=== PATIENT | female | born 1955 | race Caucasian/White ===

== ENCOUNTER → 2020-07-23 09:48 | Outpatient (BNVA) | payer OTHER, SELFPAY | PROVIDERS: PCP Internal Medicine; Referring Provider Internal Medicine; Visit Provider Urology | DX: Z13.89 Encounter for screening for other disorder (principal) ==

== ENCOUNTER 2020-12-28 09:45 | Outpatient (REF) | payer OTHER, SELFPAY ==
--- NOTE | ~2020-12-28 | US_ITS ---
EXAMINATION: US RETROPERITONEAL LIMITED (RENAL ONLY) CLINICAL INFORMATION: Calculus of kidney. COMPARISON: Renal ultrasound 12/19/2019. CT abdomen and pelvis 11/02/2019. TECHNIQUE: Real-time imaging of the kidneys. FINDINGS: RIGHT KIDNEY: 9.5 x 4.5 x 4.0 cm (SAG x AP x TRV). The kidney is normal in size, contour, and echogenicity. Renal cortical thickness is normal. No hydronephrosis. There are 3 anechoic cysts. Two lower pole cysts measure 1.1 x 1.0 x 1.0 cm and 1.0 x 0.8 x 0.9 cm. A midpole cyst measures 0.6 x 0.4 x 0.5 cm. There are echogenic stones. A lower pole stone measures 1.3 cm and a midpole stone measures 0.5 cm. There is no caliectasis. LEFT KIDNEY: 10.4 x 4.1 x 4.1 cm (SAG x AP x TRV). The kidney is normal in size, contour, and echogenicity. Renal cortical thickness is normal. No hydronephrosis. There is an anechoic cyst in the upper pole measuring 0.7 x 0.5 x 0.9 cm. There are 2 echogenic stones midpole 0.8 cm and lower pole 0.9 cm. There is no caliectasis. US/US renal BI IMPRESSION: Bilateral renal cysts. The right renal cysts are stable. Upper pole left renal cyst is new. There are bilateral nonobstructive echogenic renal calculi. There is no caliectasis or hydronephrosis.
== END 2020-12-28 09:46 | disposition home or self-care (01) ==
LOC: HO.US 09:45
PROVIDERS: PCP Internal Medicine; Visit Provider Urology
DX: N20.0 Calculus of kidney (principal)
CPT/HCPCS: 76775

== ENCOUNTER 2021-12-14 12:49 | Outpatient (REF) | payer MEDICARE, SELFPAY ==
--- NOTE | ~2021-12-14 | US_ITS ---
EXAMINATION: US RETROPERITONEAL LIMITED (RENAL ONLY) CLINICAL INFORMATION: Calculus of kidney. COMPARISON: Ultrasound renal 12/28/2020 and 12/19/2019. TECHNIQUE: Real-time imaging of the kidneys. FINDINGS: RIGHT KIDNEY: 10.8 x 4.6 x 4.6 cm (SAG x AP x TRV). The kidney is normal in size, contour, and echogenicity. Renal cortical thickness is normal. There is a cyst in the lower pole measuring 1.2 cm. There are multiple renal stones. Largest stone or cluster of stones is in the lower pole and measures 11 x 6 x 8 mm. No renal hydronephrosis. LEFT KIDNEY: 10.4 x 4.3 x 4.3 cm (SAG x AP x TRV). The kidney is normal in size and contour. Renal cortical thickness is normal. There are multiple left renal stones, largest in the lower pole measuring 10 x 6 x 9 mm No focal parenchymal lesions. No hydronephrosis. US/US renal BI IMPRESSION: Bilateral renal stones.
== END 2021-12-14 12:50 | disposition home or self-care (01) ==
LOC: HO.HMGCX 12:49
PROVIDERS: Visit Provider Internal Medicine
DX: N20.0 Calculus of kidney (principal)
CPT/HCPCS: 76775

== ENCOUNTER 2022-10-31 07:29 | Outpatient (REF) | payer MEDICARE, SELFPAY ==
[2022-10-31 10:58] LABS: MANUAL DIFF FLAG NO
[2022-10-31 11:04] LABS: Basophils Percent Auto 0.7 % (0-2); Eosinophils Absolute Auto 0.1 X10*3/uL (0.0-0.4); Eosinophils Percent Auto 1.7 % (0-4); Hematocrit 41.6 % (37.0-47.0); Imm Gran Abs Auto 0.04 X10*3/uL (0.00-0.03); Lymphocytes Absolute Auto 1.3 X10*3/uL (1.2-4.9); Lymphocytes Percent Auto 30.8 % (20-40); Mean Corpuscular HGB Conc 33.7 g/dl (31.0-35.0); Mean Corpuscular Hemoglobin 32.3 pg (27.0-33.0); Mean Corpuscular Volume 95.9 fL (80.0-98.0); Mean Platelet Volume 10.4 fL (9.4-12.3); Monocytes Absolute Auto 0.6 X10*3/uL (0.1-1.2); Neutrophils Absolute Auto 2.1 x10*3/uL (2.0-8.3); Neutrophils Percent Auto 50.8 % (45-73); Platelet Count 180 X10*3/uL (160-400); Red Blood Count 4.34 X10*6/uL (4.20-5.50); Red Cell Distribution Width 12.5 % (11.0-16.0); White Blood Count 4.2 X10*3/uL (4.8-10.8)
[2022-10-31 11:34] LABS: Alanine Aminotransferase 16 U/L (0-31); Anion Gap 14 (12-20); Aspartate Amino Transferase 22 U/L (5-31); Blood Urea Nitrogen 14 mg/dL (9-16); Calcium 9.4 mg/dL (8.4-10.2); Carbon Dioxide 19 mmol/L (22-29); Chloride 114 mmol/L (96-108); Cholesterol 174 mg/dL; Estimated Glomerular Filt Rate 52; Glucose Fasting 100 mg/dL (60-99); HDL Cholesterol 41 mg/dL; LDL Cholesterol Calculated 113 mg/dl; Potassium 3.6 mmol/L (3.3-5.1); Sodium 143 mmol/L (135-145); Triglycerides 100 mg/dL
[2022-10-31 11:38] LABS: Vitamin D 25-OH Total 24.4 ng/mL (>30)
== END 2022-10-31 07:30 | disposition home or self-care (01) ==
LOC: HO.HMGCLDS 07:29
PROVIDERS: PCP Internal Medicine; Visit Provider Internal Medicine
DX: N20.0 Calculus of kidney (principal); I10 Essential (primary) hypertension; E78.5 Hyperlipidemia, unspecified
CPT/HCPCS: 36415; 80048; 80061; 82306; 84450; 84460; 85025

== ENCOUNTER 2022-11-28 11:21 | Outpatient (REF) | payer MEDICARE, SELFPAY ==
--- NOTE | ~2022-11-28 | US_ITS ---
EXAMINATION: US RETROPERITONEAL LIMITED (RENAL ONLY) CLINICAL INFORMATION: Calculus of kidney. COMPARISON: Ultrasound retroperitoneal limited (renal only) 12/14/2021 and 12/28/2020. CT abdomen and pelvis without contrast 11/02/2019. TECHNIQUE: Real-time imaging of the kidneys. FINDINGS: RIGHT KIDNEY: 9.6 x 4.8 x 4.9 cm (SAG x AP x TRV). The kidney is normal in size, contour, and echogenicity. Renal cortical thickness is normal. Multiple nonobstructing renal calculi are seen ranging in size from 3 mm to 9 mm. A benign 1.5 cm Bosniak class I cyst is present which needs no additional imaging or follow-up. LEFT KIDNEY: 9.0 x 4.1 x 5.2 cm (SAG x AP x TRV). The kidney is normal in size, contour, and echogenicity. Renal cortical thickness is normal. Multiple renal nonobstructing stones are seen ranging in size from 3 to 7 mm in size. No focal parenchymal lesions or hydronephrosis. US/US renal BI IMPRESSION: Bilateral nonobstructing renal calculi.
== END 2022-11-28 11:22 | disposition home or self-care (01) ==
LOC: HO.HMGCX 11:21
PROVIDERS: PCP Internal Medicine; Visit Provider Internal Medicine
DX: N20.0 Calculus of kidney (principal); R10.9 Unspecified abdominal pain
CPT/HCPCS: 76775

== ENCOUNTER 2023-05-24 09:19 | Outpatient (REF) | payer MEDICARE, SELFPAY ==
[2023-05-24 12:30] LABS: Alanine Aminotransferase 15 U/L (0-31); Anion Gap 10 (12-20); Aspartate Amino Transferase 22 U/L (5-31); Blood Urea Nitrogen 14 mg/dL (9-16); Carbon Dioxide 22 mmol/L (22-29); Chloride 114 mmol/L (96-108); Cholesterol 174 mg/dL (<200); Estimated Glomerular Filt Rate 55; Glucose Fasting 91 mg/dL (60-99); HDL Cholesterol 38 mg/dL (>40); LDL Cholesterol Calculated 107 mg/dL (<100); Potassium 3.4 mmol/L (3.3-5.1); Sodium 143 mmol/L (135-145); Triglycerides 149 mg/dL (<150)
== END 2023-05-24 09:20 | disposition home or self-care (01) ==
LOC: HO.HMGCLDS 09:19
PROVIDERS: PCP Internal Medicine; Visit Provider Internal Medicine
DX: E78.5 Hyperlipidemia, unspecified (principal); I10 Essential (primary) hypertension; E55.9 Vitamin D deficiency, unspecified; M85.88 Other specified disorders of bone density and structure, other site; Z78.0 Asymptomatic menopausal state
CPT/HCPCS: 36415; 80048; 80061; 82306; 84450; 84460

== ENCOUNTER 2024-01-18 09:06 | Outpatient (AMB) | payer MEDICARE, SELFPAY ==
[2024-01-18 09:27] VITALS: BP 118/76; PULSE 81; O2SAT 97; BMI 25.2
--- NOTE | 2024-01-18 09:27 | A.OFFVIS_ITS ---
Intake Vital Signs 01/18/24 09:27 Height 5 ft 2 in Weight 138 lb BMI 25.2 BP 118/76 Blood Pressure Location Lt brachial Position Sitting Pulse 81 Pulse Source Pulse Oximeter Pulse Oximetry (%) 97 Oxygen Delivery Method Room Air Intake Visit Reasons: SWV Allergies Iodinated Contrast Media [IV CONTRAST] Allergy (Intermediate, Verified 01/18/24 10:12) itching and hives Medication List - Last Reconciled 01/18/24 by Radha Perez MD amlodipine 10 mg PO DAILY cholecalciferol (vitamin D3) 25 mcg PO DAILY multivitamin 1 tab PO DAILY rosuvastatin 5 mg PO DAILY Do you need a note to return to daycare/school/sports/work: No HPI SWV HPI Details SWV ? 68 year old lady with hyperlipidemia, hypertension, undifferentiated connective tissue disease, and osteopenia lumbar spine, presents for her subsequent Annual Wellness Visit.? She had a normal fasting lipid panel done 05/24/2023 and fasting glucose was also done at the same time which showed normal findings. She is up-to-date with her screening colonoscopy done by Dr. Demarco 12/18/2023 showing only presence of internal hemorrhoids, to be repeated again in 10 years. She is due for her screening mammogram and bone density scan, last done 01/05/2022 which showed benign findings in the latter showed presence of beginning osteopenia in her lumbar spine with a T-score of -1.3. No history of fractures. She has had 3 COVID vaccines does not want to get the booster, declines flu vaccine pneumonia vaccine and tetanus shot. ? Medical / Social History Reviewed? Past Medical History ?Yes . ? [place] [facility] of Care / Care Team list updated ?Yes . ? Surgical/Hospitalization History ?Yes . ? Current Medications (including OTC and supplements) ?Yes . ? Family History ?Yes . ? Tobacco Control form ?Yes . ? AUDIT-C (Alcohol use) form ?Yes . ? Illicit drug use in Social History ?Yes . ? Current diagnosis of depression? ?No ? Appropriate PHQ2/PHQ9 completed ?Yes . ? Data entered by ?[employer] and reviewed by provider ? Fall Risk ? Fall History? Have you had any falls with injury in the past year? ?No . ? Have you had two or more falls in the past year? ?No . ? Fall Risk Assessment: ?No falls in the past year . ? HRA filled out by the patient, reviewed by Provider and scanned. ?SWV ? Balance? Romberg ?Yes . ? Tandem walk ?Yes . ? Walk and Turn ?Yes . ? Rise from sit to stand ?Yes . ?Vision? Corrective lens none ? Vision screen ? Up-to-date, has an appointment with her eye doctor at [facility] 03/21/2024 her routine eye exam ?Hearing? Whisper test ?pass . ?Written Plan?Completed. See Patient Documents.? [facility] Medical History (Updated 01/18/24 @ 10:16 by Radha Perez MD) Osteopenia of lumbar spine Vitamin D deficiency Bilateral nephrolithiasis Degenerative disc disease, cervical Reflux esophagitis Raynaud's phenomenon without gangrene Undifferentiated connective tissue disease Dyslipidemia Essential hypertension Surgical History No pertinent past surgical history Family History Father CVD (cardiovascular disease) History of heart attack Mother Colon cancer Diabetes mellitus Brother Substance use disorder Brother Substance use disorder Brother Substance use disorder Son No problems noted. Daughter No problems noted. Daughter No problems noted. Sister No problems noted. Sister No problems noted. Sister No problems noted. Sister No problems noted. Sister No problems noted. Social History Alcohol intake: never Female Reproductive History Menstrual Other: Goes to [facility] for her screening mammogram and bone density scan, does not want to have test done this year would like to wait until next year to have repeat test done Questionnaire Medicare Wellness Checkup [age] What gender do you identify with?: female During the past 4 weeks, how much have you been bothered by emotional problems such as feeling anxious, depressed, irritable, sad or downhearted, and blue?: not at all During the past 4 weeks, has your physical & emotional health limited your social activities with family, friends, neighbors, or groups?: not at all During the past 4 weeks, how much bodily pain have you generally had?: mild pain During the past 4 weeks, was someone available to help you if you needed & wanted help?: yes, as much as I wanted During the past 4 weeks, what was the hardest physical activity you could do for at least 2 minutes?: heavy Can you get to places out of walking distance without help? (For eg., can you travel alone on buses, taxis or drive your car?): Yes Can you go shopping for groceries or clothes without someone's help?: Yes Can you prepare your own meals?: Yes Can you do your housework without help?: Yes Because of any health problems, do you need the help of another person with your personal care needs such as eating, bathing, dressing or getting around the house?: No Can you handle your own money without help?: Yes During the past 4 weeks, how would you rate your health in general?: good During the past 4 weeks how have things been going for you?: pretty well Are you having difficulties driving your car?: no Do you always fasten your seat belt when you are in a car?: yes, usually During past 4 weeks, have you been bothered by the following: never: Falling or dizzy when standing up, Sexual problems?, Trouble eating well?, Teeth or denture problems? and Problems using the telephone? and seldom: Tiredness or fatigue? Have you fallen 2 or more times in the past year?: No Are you afraid of falling?: No Are you a smoker?: no During the past 4 weeks, how many drinks of wine, beer, or other alcoholic beverages did you have?: no alcohol at all Do you exercise for about 20 minutes 3 or more times a week?: yes, most of the time Have you been given information to help with the following?: no: Hazards in your house that might hurt you? and no: Keeping track of your medications? How often do you have trouble taking medicines the way you have been told to take them?: I always take medicine as prescribed How confident are you that you can control & manage most of your health problems?: very confident What is your race?: White Mini Mental State Exam (MMSE) Orientation What is the (year) (season) (date) (day) (month)?: year (2019), season (Spring), date (01/18/2024), day () and month (January) Where are we (state) (county) (town or city) (hospital) (floor)?: state ([place]), county ([place]), town or city ([place]) and hospital/clinic ([facility]) Score Score: 9 Activity of Daily Living Bathing - sponge bath, tub bath or shower: receives no assistance (gets in/out by self, if usual bathing means Dressing - getting clothes from closets & drawers, including inner/outer garments & fasteners.: gets clothes & gets completely dressed without help Toileting - going to the 'toilet room' for urine/bowel elimination & cleaning self/arranging clothes: goes to toilet room, cleans self, arranges clothes without help Transfer: moves in & out of bed and chair without help (may use support object) Feeding: feeds self without help Total Score: 0 Information obtained from: patient Using telephone: independent Traveling: independent Shopping: independent Preparing meals: independent Housework: independent Taking medicine: independent Managing money: independent PHQ-9 Over the last 2 weeks, how often have you been bothered by any of the following problems? 1. Little interest or pleasure in doing things: not at all 2. Feeling down, depressed, or hopeless: not at all 3. Trouble falling or staying asleep, or sleeping too much: not at all 4. Feeling tired or having little energy: not at all 5. Poor appetite or overeating: not at all 6. Feeling bad about yourself - or that you are a failure or have let yourself or your family down: not at all 7. Trouble concentrating on things, such as reading the newspaper or watching television: not at all 8. Moving or speaking so slowly that other people could have noticed. Or the opposite - being so fidgety or restless that you have been moving around a lot more than usual: not at all 9. Thoughts that you would be better off or of hurting yourself in some way: not at all Total score: 0 Depression Screening Interpretation: Negative Depression Screening Done: Yes 83802 - PHQ-9 Billing: Yes Source: Developed by Drs. Lasha Payne, Jennifer Elder, Lei Vela and colleagues, with an educational thor from [employer]. Physical Exam Vital Signs: Last Vital Signs Pulse 81 01/18/24 09:27 BP 118/76 01/18/24 09:27 Pulse Ox 97 01/18/24 09:27 Oxygen Delivery Method Room Air 01/18/24 09:27 BMI result Body Mass Index 25.2 Assessment & Plan Assessment & Plan (1) Encounter for subsequent annual wellness visit (AWV) in Medicare patient: Code(s): Z00.00 - Encounter for general adult medical examination without abnormal findings Plan: Medical wellness checklist discussed with patient, reviewed and updated. Patient does not want to get any further vaccines, does not want to get a screening mammogram or bone density done this year would like to defer it to next year. Up-to-date with her colon cancer screening. Healthcare proxy and MOLST form given to patient to complete, would like to discuss this 1st with her family . (2) Osteopenia of lumbar spine: Code(s): M85.88 - Other specified disorders of bone density and structure, other site Plan: Patient declined getting bone densities testing done this year, would like to wait until next year, no history of fractures, encouraged to do regular weight- bearing exercise, take adequate calcium from dietary sources and continue with vitamin-D 3 supplements (3) Dyslipidemia: Code(s): E78.5 - Hyperlipidemia, unspecified Plan: Fasting lipid panel ordered, currently on rosuvastatin (4) Essential hypertension: Code(s): I10 - Essential (primary) hypertension Plan: Basic metabolic panel ordered, blood pressure stable and controlled on amlodipine (5) Undifferentiated connective tissue disease: Code(s): M35.9 - Systemic involvement of connective tissue, unspecified Plan: Patient no longer on methotrexate, does not want to take further medication and does not want to take any immunomodulator (6) Bilateral nephrolithiasis: Code(s): N20.0 - Calculus of kidney Plan: Currently asymptomatic Orders: Orders Vitamin D 25-OH Total 01/18/24 M85.88 - Other specified disorders of bone density and structure, other site, E78.5 - Hyperlipidemia, unspecified, I10 - Essential (primary) hypertension, M35.9 - Systemic involvement of connective tissue, unspecified Aspartate Amino Transferase 01/18/24 M85.88 - Other specified disorders of bone density and structure, other site, E78.5 - Hyperlipidemia, unspecified, I10 - Essential (primary) hypertension, M35.9 - Systemic involvement of connective tissue, unspecified Lipid Panel 01/18/24 M85.88 - Other specified disorders of bone density and structure, other site, E78.5 - Hyperlipidemia, unspecified, I10 - Essential (primary) hypertension, M35.9 - Systemic involvement of connective tissue, unspecified Basic Metabolic Panel Fasting 01/18/24 M85.88 - Other specified disorders of bone density and structure, other site, E78.5 - Hyperlipidemia, unspecified, I10 - Essential (primary) hypertension, M35.9 - Systemic involvement of connective tissue, unspecified Alanine Aminotransferase 01/18/24 M85.88 - Other specified disorders of bone density and structure, other site, E78.5 - Hyperlipidemia, unspecified, I10 - Essential (primary) hypertension, M35.9 - Systemic involvement of connective tissue, unspecified Quality Reporting (2019) Depression/Bipolar (159/160/161/177) PHQ-9: Total score: 0 Coding Level of Care Code Medicare Subsequent (G0439) Diagnoses Encounter for subsequent annual wellness visit (AWV) in Medicare patient Z00.00 Osteopenia of lumbar spine M85.88 Dyslipidemia E78.5 Essential hypertension I10 Undifferentiated connective tissue disease M35.9 Bilateral nephrolithiasis N20.0 CPT Codes Advance Care Planning - Time spent: 1-15 minutes, not on file ([id number]) Advance Care Planning Advance Care Planning discussion: Exists, not on file Date of discussion: 01/18/24 Who was present: Patient Forms completed: Health Care Proxy (Given to patient to complete) and MOLST (Given to patient to complete) Time spent: 1-15 minutes, not on file Actual minutes spent: 15
== END 2024-01-18 10:14 | disposition home or self-care (01) ==
PROVIDERS: PCP Internal Medicine; Visit Provider Internal Medicine
DX: Z00.00 Encounter for general adult medical examination without abnormal findings (principal); M35.9 Systemic involvement of connective tissue, unspecified; M85.88 Other specified disorders of bone density and structure, other site; E78.5 Hyperlipidemia, unspecified; I10 Essential (primary) hypertension; N20.0 Calculus of kidney
CPT/HCPCS: 1124F; G0439

== ENCOUNTER 2024-01-18 10:15 | Outpatient (REF) | payer MEDICARE, SELFPAY ==
[2024-01-18 14:24] LABS: Alanine Aminotransferase 16 U/L (0-31); Anion Gap 15 (12-20); Aspartate Amino Transferase 19 U/L (5-31); Blood Urea Nitrogen 26 mg/dL (9-16); Calcium 9.9 mg/dL (8.4-10.2); Carbon Dioxide 18 mmol/L (22-29); Chloride 114 mmol/L (96-108); Cholesterol 179 mg/dL (<200); Estimated Glomerular Filt Rate 57; Glucose Fasting 98 mg/dL (60-99); HDL Cholesterol 45 mg/dL (>40); LDL Cholesterol Calculated 115 mg/dL (<100); Potassium 3.8 mmol/L (3.3-5.1); Sodium 143 mmol/L (135-145); Triglycerides 96 mg/dL (<150); Vitamin D 25-OH Total 53.3 ng/mL (>30)
== END 2024-01-18 10:16 | disposition home or self-care (01) ==
LOC: HO.HMGCLDS 10:15
PROVIDERS: PCP Internal Medicine; Visit Provider Internal Medicine
DX: M85.88 Other specified disorders of bone density and structure, other site (principal); E78.5 Hyperlipidemia, unspecified; I10 Essential (primary) hypertension; M35.9 Systemic involvement of connective tissue, unspecified
CPT/HCPCS: 36415; 80048; 80061; 82306; 84450; 84460

== ENCOUNTER 2025-01-01 06:02 | Outpatient (REF) | payer MEDICARE, SELFPAY ==
[2025-01-01 10:01] LABS: MANUAL DIFF FLAG NO
[2025-01-01 10:05] LABS: Basophils Percent Auto 0.7 % (0-2); Eosinophils Absolute Auto 0.1 X10*3/uL (0.0-0.4); Eosinophils Percent Auto 1.1 % (0-4); Hematocrit 40.9 % (37.0-47.0); Imm Gran Abs Auto 0.03 X10*3/uL (0.00-0.03); Imm Gran Pct Auto 0.5 % (0.0-0.4); Lymphocytes Absolute Auto 1.4 X10*3/uL (1.2-4.9); Lymphocytes Percent Auto 23.8 % (20-40); Mean Corpuscular HGB Conc 34.2 g/dl (31.0-35.0); Mean Corpuscular Hemoglobin 32.1 pg (27.0-33.0); Mean Corpuscular Volume 93.8 fL (80.0-98.0); Mean Platelet Volume 10.1 fL (9.4-12.3); Monocytes Absolute Auto 0.8 X10*3/uL (0.1-1.2); Monocytes Percent Auto 13.3 % (2-11); Neutrophils Absolute Auto 3.5 x10*3/uL (2.0-8.3); Neutrophils Percent Auto 60.6 % (45-73); Platelet Count 198 X10*3/uL (160-400); Red Blood Count 4.36 X10*6/uL (4.20-5.50); Red Cell Distribution Width 12.6 % (11.0-16.0); White Blood Count 5.7 X10*3/uL (4.8-10.8)
[2025-01-01 11:07] LABS: Alanine Aminotransferase 16 U/L (0-31); Anion Gap 13 (12-20); Aspartate Amino Transferase 24 U/L (5-31); Blood Urea Nitrogen 19 mg/dL (9-16); Calcium 9.6 mg/dL (8.4-10.2); Carbon Dioxide 20 mmol/L (22-29); Chloride 113 mmol/L (96-108); Cholesterol 188 mg/dL (<200); Estimated Glomerular Filt Rate 55; Glucose Fasting 91 mg/dL (60-99); HDL Cholesterol 45 mg/dL (>40); LDL Cholesterol Calculated 119 mg/dL (<100); Potassium 3.3 mmol/L (3.3-5.1); Sodium 143 mmol/L (135-145); Triglycerides 122 mg/dL (<150)
[2025-01-01 11:22] LABS: Vitamin D 25-OH Total 54.3 ng/mL (>30)
== END 2025-01-01 06:03 | disposition home or self-care (01) ==
LOC: HO.HMGCLDS 06:02
PROVIDERS: PCP Internal Medicine; Visit Provider Internal Medicine
DX: M85.88 Other specified disorders of bone density and structure, other site (principal); K21.00 Gastro-esophageal reflux disease with esophagitis, without bleeding; E78.5 Hyperlipidemia, unspecified; I10 Essential (primary) hypertension
CPT/HCPCS: 36415; 80048; 80061; 82306; 84450; 84460; 85025

== ENCOUNTER 2025-01-22 09:23 | Outpatient (AMB) | payer MEDICARE, SELFPAY ==
--- NOTE | 2025-01-22 09:46 | AM.OFFVISMDC ---
Intake Vital Signs 01/22/25 10:25 Height 5 ft 1 in Weight 142 lb BMI 26.8 BP 134/84 Blood Pressure Location Lt brachial Position Sitting Respiration 16 Pulse 88 Pulse Source Pulse Oximeter Temp 97.8 F Temp Source Oral Pulse Oximetry (%) 99 Oxygen Delivery Method Room Air Intake Visit Reasons: AWV Intake Note: Pt is here today for her AWV: Last mammogram 01/05/22, bone density scan 01/05/22, colonoscopy 12/18/23 Allergies Iodinated Contrast Media [IV CONTRAST] Allergy (Intermediate, Verified 01/18/24 10:12) itching and hives Medication List - Last Reconciled 01/22/25 by Radha Perez MD amlodipine 10 mg PO DAILY cholecalciferol (vitamin D3) 25 mcg PO DAILY multivitamin 1 tab PO DAILY rosuvastatin 5 mg PO DAILY HPI AWV HPI Details IPPE/AWV ? SWV 69-year-old lady here today for her subsequent annual wellness visit. She has hypertension, currently stable and controlled on amlodipine 10 mg taken once a day. Has hyperlipidemia, with late fasting labs showing lipids within normal limits 01/01/2025. She had a fasting blood sugar drawn at the same time which also came back within normal limits. She last had her mammogram done at [facility] 01/05/2022 with a benign findings, patient does not want to do further screenings. She had a bone density scan done at the same time in 2021 which showed presence of osteopenia in her lumbar spine with a T-score of -1.3, agreeable to repeating another bone density scan. No longer gets cervical cancer screenings or pelvic exams. Last colonoscopy was done by Dr. Demarco December 17/2024 which showed normal findings, repeat due again in 10 years Patient does not want to get any vaccines ? Medical / Social History Reviewed? Past Medical History ?Yes . ? [place] of Care / Care Team list updated ?Yes . ? Surgical/Hospitalization History ?Yes . ? Current Medications (including OTC and supplements) ?Yes . ? Family History ?Yes . ? Tobacco Control form ?Yes . ? AUDIT-C (Alcohol use) form ?Yes . ? Illicit drug use in Social History ?Yes . ? Current diagnosis of depression? ?No ? Appropriate PHQ2/PHQ9 completed ?Yes . ? Data entered by ?[employer] and reviewed by provider ? Fall Risk ? Fall History? Have you had any falls with injury in the past year? ?No . ? Have you had two or more falls in the past year? ?No . ? Fall Risk Assessment: ?No falls in the past year . ? HRA filled out by the patient, reviewed by Provider and scanned. ?SWV ? Balance? Romberg negative. ? Tandem walk ?Yes . ? Walk and Turn ?Yes . ? Rise from sit to stand ?Yes . ?Vision? Corrective lens no ? Vision screen ? Up-to-date, goes to [facility], last seen March 2024 ?Hearing? Whisper test ?pass . ?Written Plan?Completed. See Patient Documents.? [facility] Medical History Mammogram declined Vaccination declined by patient Osteopenia of lumbar spine Vitamin D deficiency Bilateral nephrolithiasis Degenerative disc disease, cervical Reflux esophagitis Raynaud's phenomenon without gangrene Undifferentiated connective tissue disease Dyslipidemia Essential hypertension Surgical History No pertinent past surgical history Family History Father CVD (cardiovascular disease) History of heart attack Mother Colon cancer Diabetes mellitus Brother Substance use disorder Brother Substance use disorder Brother Substance use disorder Son No problems noted. Daughter No problems noted. Daughter No problems noted. Sister No problems noted. Sister No problems noted. Sister No problems noted. Sister No problems noted. Sister No problems noted. Social History Alcohol intake: never Questionnaire Medicare Wellness Checkup [age] 65-69 What gender do you identify with?: female During the past 4 weeks, how much have you been bothered by emotional problems such as feeling anxious, depressed, irritable, sad or downhearted, and blue?: not at all During the past 4 weeks, has your physical & emotional health limited your social activities with family, friends, neighbors, or groups?: not at all During the past 4 weeks, how much bodily pain have you generally had?: mild pain During the past 4 weeks, was someone available to help you if you needed & wanted help?: yes, as much as I wanted During the past 4 weeks, what was the hardest physical activity you could do for at least 2 minutes?: very heavy Can you get to places out of walking distance without help? (For eg., can you travel alone on buses, taxis or drive your car?): Yes Can you go shopping for groceries or clothes without someone's help?: Yes Can you prepare your own meals?: Yes Can you do your housework without help?: Yes Because of any health problems, do you need the help of another person with your personal care needs such as eating, bathing, dressing or getting around the house?: No Can you handle your own money without help?: Yes During the past 4 weeks, how would you rate your health in general?: good During the past 4 weeks how have things been going for you?: pretty well Are you having difficulties driving your car?: no Do you always fasten your seat belt when you are in a car?: yes, usually During past 4 weeks, have you been bothered by the following: never: Sexual problems?, Teeth or denture problems? and Problems using the telephone?, seldom: Trouble eating well? and sometimes: Falling or dizzy when standing up and Tiredness or fatigue? Have you fallen 2 or more times in the past year?: No Are you afraid of falling?: No Are you a smoker?: no During the past 4 weeks, how many drinks of wine, beer, or other alcoholic beverages did you have?: no alcohol at all Do you exercise for about 20 minutes 3 or more times a week?: yes, most of the time Have you been given information to help with the following?: no: Hazards in your house that might hurt you? and no: Keeping track of your medications? How often do you have trouble taking medicines the way you have been told to take them?: I always take medicine as prescribed How confident are you that you can control & manage most of your health problems?: very confident What is your race?: White Mini Mental State Exam (MMSE) Orientation What is the (year) (season) (date) (day) (month)?: year (2023), season (Spring), date (01/22/2025), day (Monday) and month (January) Where are we (state) (county) (town or city) (hospital) (floor)?: state ([place]), county ([place]), town or city ([place]) and hospital/clinic ([facility]) Score Score: 9 Activity of Daily Living Bathing - sponge bath, tub bath or shower: receives no assistance (gets in/out by self, if usual bathing means Dressing - getting clothes from closets & drawers, including inner/outer garments & fasteners.: gets clothes & gets completely dressed without help Toileting - going to the 'toilet room' for urine/bowel elimination & cleaning self/arranging clothes: goes to toilet room, cleans self, arranges clothes without help Transfer: moves in & out of bed and chair without help (may use support object) Feeding: feeds self without help Total Score: 0 Information obtained from: patient Using telephone: independent Traveling: independent Shopping: independent Preparing meals: independent Housework: independent Taking medicine: independent Managing money: independent PHQ-9 Over the last 2 weeks, how often have you been bothered by any of the following problems? 1. Little interest or pleasure in doing things: not at all 2. Feeling down, depressed, or hopeless: not at all 3. Trouble falling or staying asleep, or sleeping too much: not at all 4. Feeling tired or having little energy: not at all 5. Poor appetite or overeating: not at all 6. Feeling bad about yourself - or that you are a failure or have let yourself or your family down: not at all 7. Trouble concentrating on things, such as reading the newspaper or watching television: not at all 8. Moving or speaking so slowly that other people could have noticed. Or the opposite - being so fidgety or restless that you have been moving around a lot more than usual: not at all 9. Thoughts that you would be better off or of hurting yourself in some way: not at all Total score: 0 Depression Screening Interpretation: Negative Depression Screening Done: Yes 68520 - PHQ-9 Billing: Yes Source: Developed by Drs. Lasha Payne, Jennifer Elder, Lei Vela and colleagues, with an educational thor from [employer]. Physical Exam Vital Signs: Last Vital Signs Temp 97.8 F 01/22/25 10:25 Pulse 88 01/22/25 10:25 Resp 16 01/22/25 10:25 BP 134/84 01/22/25 10:25 Pulse Ox 99 01/22/25 10:25 Oxygen Delivery Method Room Air 01/22/25 10:25 BMI result Body Mass Index 26.8 Assessment & Plan Assessment & Plan (1) Osteopenia of lumbar spine: Code(s): M85.88 - Other specified disorders of bone density and structure, other site Plan: Patient agreed to get another bone density scan done. Reinforced importance of taking adequate vitamin-D 3 supplements at least 2000 units daily taking adequate calcium from dietary sources and doing regular weight-bearing exercise. (2) Vaccination declined by patient: Code(s): Z28.21 - Immunization not carried out because of patient refusal Plan: Patient does not want to get any further vaccines (3) Mammogram declined: Code(s): Z53.20 - Procedure and treatment not carried out because of patient's decision for unspecified reasons Plan: Patient does not want to get any breast cancer screening, aware of the risks involved in not getting regular screening (4) Dyslipidemia: Code(s): E78.5 - Hyperlipidemia, unspecified Plan: Continue with rosuvastatin 5 mg daily, latest fasting lipids are within normal limit (5) Essential hypertension: Code(s): I10 - Essential (primary) hypertension Plan: Hypertension stable controlled on amlodipine takes 10 mg once a day (6) Encounter for subsequent annual wellness visit (AWV) in Medicare patient: Code(s): Z00.00 - Encounter for general adult medical examination without abnormal findings Plan: Medical wellness checklist reviewed, discussed with patient and updated (7) Advanced directives, counseling/discussion: Code(s): Z71.89 - Other specified counseling Plan: Initiated the conversation about Advanced Directives. Advanced Directives help patients prepare for current and future decisions about their medical treatment and place of care. Discussed with patient that it is a process where a patients current condition and prognosis are reviewed, their wishes for information regarding their illness are elicited, and likely medical dilemmas are presented and options discussed. Healthcare proxy given today. The form can be amended as needed, reviewed yearly and make changes as needed Orders: Orders XR DEXA axial skeleton Today M85.88 - Other specified disorders of bone density and structure, other site Medications: Refilled amlodipine 10 mg PO DAILY 90 caps 4RF rosuvastatin 5 mg PO DAILY 90 tabs 4RF Quality Reporting (2019) Depression/Bipolar (159/160/161/177) PHQ-9: Total score: 0 Coding Level of Care Code Medicare Subsequent (G0439) Diagnoses Osteopenia of lumbar spine M85.88 Vaccination declined by patient Z28.21 Mammogram declined Z53.20 Dyslipidemia E78.5 Essential hypertension I10 Encounter for subsequent annual wellness visit (AWV) in Medicare patient Z00.00 Advanced directives, counseling/discussion Z71.89 CPT Codes Advance Care Planning - Time spent: 16-45 minutes ([id number]) Additional Codes PHQ-9 - 63540 - PHQ-9 Billing: Yes ([id number]) Advance Care Planning Advance Care Planning discussion: Completed/Scanned Date of discussion: 01/22/25 Who was present: Patient Forms completed: Health Care Proxy Time spent: 16-45 minutes Actual minutes spent: 2
[2025-01-22 10:25] VITALS: BP 134/84; PULSE 88; RESP 16; TEMP 36.6; O2SAT 99; BMI 26.8
== END 2025-01-22 10:56 | disposition home or self-care (01) ==
PROVIDERS: PCP Internal Medicine; Visit Provider Internal Medicine
DX: Z00.00 Encounter for general adult medical examination without abnormal findings (principal); M85.88 Other specified disorders of bone density and structure, other site; Z28.21 Immunization not carried out because of patient refusal; Z53.20 Procedure and treatment not carried out because of patient's decision for unspecified reasons; E78.5 Hyperlipidemia, unspecified; I10 Essential (primary) hypertension; Z71.89 Other specified counseling

== ENCOUNTER → 2025-01-22 09:23 | Outpatient (BNVA) | payer MEDICARE, SELFPAY | PROVIDERS: PCP Internal Medicine; Visit Provider Internal Medicine | DX: Z00.00 Encounter for general adult medical examination without abnormal findings (principal); M85.88 Other specified disorders of bone density and structure, other site; E78.5 Hyperlipidemia, unspecified; I10 Essential (primary) hypertension; Z79.899 Other long term (current) drug therapy; Z71.89 Other specified counseling; Z28.21 Immunization not carried out because of patient refusal | CPT/HCPCS: 96127 ==